=== PATIENT | female | born 1985 | race Two or more races ===

== ENCOUNTER 2016-07-09 18:31 | Emergency (ER) | payer MEDICAID ==
[2016-07-09] MEDS ORDERED: OXYCODONE HCL 5 MG TABLET ONE (19:08)
[2016-07-09 19:47] LABS: URINE BILIRUBIN NEGATIVE (NEGATIVE); URINE BLOOD NEGATIVE (NEGATIVE); URINE GLUCOSE (UA) NEGATIVE (NEGATIVE); URINE LEUKOCYTE ESTERASE TRACE (NEGATIVE); URINE NITRITE NEGATIVE (NEGATIVE); URINE PROTEIN NEGATIVE (NEGATIVE); URINE UROBILINOGEN 1 mg/dL (0-1 mg/dl)
[2016-07-09 19:49] LABS: HCG,QUALITATIVE URINE NEGATIVE
[2016-07-09 19:51] LABS: URINE APPEARANCE SL CLOUDY; URINE COLOR YELLOW
[2016-07-09 20:10] LABS: URINE AMORPHOUS SEDIMENT MODERATE; URINE BACTERIA 1+; URINE RBC 0 /hpf; URINE WBC 0-2 /hpf
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
[2016-07-09] MEDS ORDERED: LIDOCAINE 5% PATCH TD ONE (20:30)
== END 2016-07-09 18:36 | disposition home or self-care (01) ==
LOC: ED 18:31
DX: M54.5 Low back pain (principal); Z87.828 Personal history of other (healed) physical injury and trauma
CPT/HCPCS: 81025; 81001; 72131; 99284; 99283; A9270 ×2